=== PATIENT | female | born 1970 | race Caucasian/White ===

== ENCOUNTER 2024-10-12 10:56 | Outpatient (CLI) | payer BC | END 2024-10-12 10:57 | disposition home or self-care (01) | LOC: CSHLAB 10:56 | PROVIDERS: ATTEND Student in an Organized Health Care Education/Training Program | DX: Z01.818 Encounter for other preprocedural examination (principal); N95.0 Postmenopausal bleeding | CPT/HCPCS: 84703; 85027; 86850; 86900; 86901; 93005; 93010 ==

== ENCOUNTER 2024-10-16 10:14 | Day surgery (SDC) | payer BC ==
[2024-10-12 11:22] VITALS: BMI 43.1
[2024-10-12 11:44] LABS: Hematocrit 39.3 % (34.9-44.5); Hemoglobin 12.9 g/dL (12.0-15.5); Mean Corpuscular Hemoglobin 31.2 pg (27.0-33.0); Mean Corpuscular Volume 95.2 fL (81.6-98.3); Platelet Count 352 10x3/uL (150-450); Red Blood Cell (RBC) Count 4.13 10x6/uL (3.90-5.03); White Blood Cell (WBC) Count 4.56 10x3/uL (3.5-10.5)
[2024-10-12 11:55] LABS: BHCG - Serum Negative (NEGATIVE); Pregs Control Background? CLEAR/WHITE (CLR/WHITE); Pregs Control Bar Appear? YES (CONTROL BAR)
[2024-10-16] MEDS ORDERED: Gabapentin 300 MG CAP ONE (10:39)
[2024-10-16] MEDS ORDERED: Famotidine/PF 20 mg/2ml Vial ONE (10:39)
[2024-10-16] MEDS ORDERED: Bupivacaine HCl 0.5%/Epinephrine 1:200,000/PF 30 ml Vial ONE (11:55)
[2024-10-16] MEDS ORDERED: PROPOFOL 20 ML ONE (12:01)
[2024-10-16] MEDS ORDERED: Rocuronium Bromide 10 MG/ML (10ML VIAL) ONE (12:01)
[2024-10-16] MEDS ORDERED: CEFAZOLIN 2 GM VIAL ONE (12:13)
[2024-10-16] MEDS ORDERED: SUGAMMADEX SODIUM 200 MG/2 ML VIAL ONE (14:19)
[2024-10-16] MEDS ORDERED: Ondansetron PF 4 MG/2 ML Vial ONE (14:19)
[2024-10-16] MEDS ORDERED: HYDROmorphone 0.5 MG/0.5 ML SYRINGE ONE ×3 (14:20→14:45)
[2024-10-16] MEDS ORDERED: HYDROcodone/Acetaminophen 10/325 mg Tablet ONE ×2 (15:26→16:06)
== END 2024-10-16 16:45 | disposition home or self-care (01) ==
LOC: CSHSDC 10:14
PROVIDERS: ATTEND Student in an Organized Health Care Education/Training Program
DX: D25.1 Intramural leiomyoma of uterus (principal); N80.03 Adenomyosis of the uterus; N84.0 Polyp of corpus uteri; N88.8 Other specified noninflammatory disorders of cervix uteri; I10 Essential (primary) hypertension; K31.89 Other diseases of stomach and duodenum; Z87.891 Personal history of nicotine dependence; Z87.59 Personal history of other complications of pregnancy, childbirth and the puerperium; Z98.51 Tubal ligation status; Z90.89 Acquired absence of other organs
CPT/HCPCS: 36415; 84703; 85027; 86850; 86900; 86901; 88307; 88309; 88313; 88341; 88342; J1100; J1171; J1308; J2250; J2405; J2704; J3010; S2900

== ENCOUNTER 2024-11-28 09:44 | Outpatient (CLI) | payer BC ==
[2024-11-28] MEDS ORDERED: Iopamidol 370 76% 100 ML VIAL ONE (15:31)
== END 2024-11-28 09:45 | disposition home or self-care (01) ==
LOC: CSHCT 09:44
PROVIDERS: ATTEND Obstetrics & Gynecology Gynecologic Oncology
DX: C56.2 Malignant neoplasm of left ovary (principal); R19.5 Other fecal abnormalities; K43.9 Ventral hernia without obstruction or gangrene
CPT/HCPCS: 71260; 74177; Q9967

== ENCOUNTER 2025-01-28 10:06 | Outpatient (CLI) | payer BC | END 2025-01-28 10:07 | disposition home or self-care (01) | LOC: CSHMAMMO 10:06 | PROVIDERS: ATTEND Student in an Organized Health Care Education/Training Program | DX: Z53.9 Procedure and treatment not carried out, unspecified reason (principal) | CPT/HCPCS: G0279 ==